=== PATIENT | male | born 1940 | race Caucasian/White ===

== ENCOUNTER 2016-10-10 20:22 | Inpatient (IN) ==
[2016-10-10] MEDS ORDERED: 0.9 % Sodium Chloride 1,000 ML IVC ONE (21:02)
[2016-10-10 21:17] LABS: Bilirubin,Urine Negative (Negative); Blood,Urine Trace (Negative); Clarity,Urine Clear (Clear); Color,Urine Yellow (Yellow); Glucose,Urine (UA) Normal (Normal); Ketones,Urine Negative (Negative); Leukocyte Esterase,Urine Negative (Negative); Nitrite,Urine Negative (Negative); Protein,Urine 30 mg/dL (Neg-Trace); Specific Gravity,Urine 1.019 (1.010-1.025); Urobilinogen,Urine Normal (Normal)
[2016-10-10 21:18] LABS: Bacteria,Urine None Seen per hpf (None-Few); Hyaline Casts,Urine None Seen per lpf (None-Few); RBC,Urine 0-3 per hpf (0-3); Squamous Epithelial Cell,Urine Few per lpf (None-Few); WBC,Urine 0-3 per hpf (0-3)
[2016-10-10] MEDS ORDERED: Acetaminophen 325 MG TABLET PO ONE (21:19)
--- NOTE | 2016-10-10 21:24 | Emergency Department Note ---
Disposition Clinical Impression: Generalized weakness, JUAN (acute kidney injury), Hypokalemia Fever Qualifiers: Fever type: unspecified Qualified Code(s): R50.9 - Fever, unspecified Disposition: Admitted As Inpatient Condition: Fair [facility]Primary Care Provider[facility] - Forms: ED Satisfaction Letter Time of Disposition: 22:38 General Adult HPI - General Chief complaint: ED Altered Mental Status Stated complaint: possible heat exhaustion/weakness/confusion Source: patient, EMS Limitations: no limitations Nursing Notes Reviewed: Yes Vital Signs Reviewed: Yes - History of Present Illness HPI Narrative: Patient is a 76-year-old male with a history of A. fib and a heart murmur that is had since childhood. Patient presents with chief complaint of feeling very hot. Patient states his apartment felt very hot when he entered it this afternoon around noon but states she is unable to turn the heat down secondary to not having the strength to lift his arms to do so. Patient was brought in by EMS. [facility]. Patient is on warfarin. Pain Scale: 0 - Related Data Allergies Allergy/AdvReac Type Severity Reaction Status Date / Time No Known Allergies Allergy Unverified 10/10/16 20:35 All systems ED: reviewed and negative except as stated. Constitutional: Reports: fever Eyes: Denies: vision change Cardiovascular: Denies: chest pain, palpitations, syncope Respiratory: Reports: dyspnea. Denies: cough, wheezes Gastrointestinal: Denies: abdominal pain, nausea, vomiting Genitourinary: Denies: urgency, dysuria Musculoskeletal: Denies: back pain, neck pain Integumentary: Denies: rash Past Medical History - Past Medical History Attestation: Yes The following information was validated with the patient. Source: patient Medical history: Reports: arthritis, atrial fibrillation, diabetes, hyperlipidemia, hypertension Psychiatric history: Reports: no psych history - Social History Smoking Status: Never smoker Smokeless Tobacco Status: No Alcohol use: Reports: none Drug use: Reports: none Physical Exam - General Limitations: no limitations General appearance: alert - Head Head exam: atraumatic, normocephalic, normal inspection - Eye Eye exam: Present: normal appearance, PERRL, EOMI. Absent: scleral icterus - ENT ENT exam: normal exam, normal oropharynx, mucous membranes dry - Neck Neck exam: Present: normal inspection, full ROM, trachea midline. Absent: tenderness, lymphadenopathy - Chest Chest inspection: Present: normal inspection, symmetric chest wall rise. Absent : tenderness - Respiratory Respiratory exam: Present: normal lung sounds bilaterally, respiratory distress. Absent: wheezes - Cardiovascular Cardiovascular exam: Present: normal rhythm, tachycardia, systolic murmur (2/6) - Abdominal Exam Abdominal exam: Present: soft, Non-Tender - Rectal Exam Rectal exam: Present: deferred - Extremities Exam Extremities exam: Present: normal inspection, full ROM, normal capillary refill. Absent: tenderness, pedal edema - Expanded Lower Extremity Exam Hip/Pelvis exam: Present: normal inspection, full ROM - Back Exam Back exam: Present: normal inspection. Absent: CVA tenderness (R), CVA tenderness (L) - Neurological Exam Neurological exam: Present: alert, oriented X3, CN II-XII intact - Psychiatric Psychiatric exam: Present: normal affect, normal mood - Skin Skin exam: Present: warm, dry, intact, normal color. Absent: rash Course - Reevaluation(s) Reevaluation #1: Patient's a 76-year-old male with history of hypertension and lipidemia and diabetes and A. fib. He presents with fever 101.4, generalized weakness, increased thirst, and possible heat exhaustion secondary to very hot apartment area, patient denies any cough, chest pain, shortness of breath, abdominal pain , dysuria, back pain, congestion. Assessment: Generalized weakness/altered mental status secondary to heat Exhaustion, fever secondary to a possible acute viral etiology, ACS/FL, stroke, flu Plan: Cardiac workup, LFTs, PT/INR, urinalysis, 650 mg Tylenol, 324 mg aspirin, 1 L IV normal saline, Flu and reevaluate for disposition Time: 21:25 Reevaluation #2: Patient doing well. Alert and oriented 3 with a GCS of 15. Patient's potassium 2.7 start him on oral potassium chloride 40 meq by mouth. Patient is BUN 32 with a creatinine of 1.49. No previous for comparison. Patient does not report any kidney disease. This may be early AKA eye. Patient started on IV rehydration therapy and also saline [address] and chest x-ray results Patient is therapeutic on warfarin and INR 2.3, patient's troponin is negative at 0.01, and urinalysis did not show signs of UTI EKG shows ST depression in the 3,[address] head shows no acute intracranial abnormalities, chest x-ray showed no acute cardiopulmonary abnormalities. Testing patient for flu Plan is to admit patient for generalized weakness possibly secondary to heat exhaustion and fever, with hypokalemia and JUAN. Time: 21:53 - Consultations Consultation #1: Dr. Escalante accepted for admission Time: 22:37 Vital Signs Temperature 101.4 F H 10/10/16 20:25 Pulse Rate 99 10/10/16 20:25 Respiratory Rate 20 10/10/16 20:25 Blood Pressure 146/77 10/10/16 20:25 O2 Sat by Pulse Oximetry 94 L 10/10/16 20:25 Temperature 98.8 F 10/10/16 22:07 Pulse Rate 97 10/10/16 21:50 Respiratory Rate 20 10/10/16 21:50 Blood Pressure 134/56 10/10/16 21:50 O2 Sat by Pulse Oximetry 95 10/10/16 21:50 Oxygen Delivery Oxygen Delivery Room Air Medical Decision Making - Medical Records Medical records reviewed: Yes I reviewed the patient's medical records. - Lab Data Lab results reviewed: Yes I reviewed the patient's lab results. Lab results narrative: Short CBC 10/10/16 Range/Units 21:22 WBC 9.3 (4.3-11.1) K/mcL Hgb 11.9 L (12.9-16.9) g/dL Hct 34.3 L (37.5-50.1) % Plt Count 173 (140-400) K/mcL Neutrophils # 8.2 (1.6-8.9) K/mcL BMP 10/10/16 Range/Units 21:21 Sodium 139 (136-145) mEq/L Potassium 2.7 L (3.5-4.5) mEq/L Chloride 106 (98-109) mEq/L Carbon Dioxide 20 (19-29) mEq/L BUN 32 H (8-26) mg/dL Creatinine 1.49 H (0.72-1.25) mg/dL Glucose 175 H (70-99) mg/dL Calcium 9.1 (8.6-10.8) mg/dL Cardiac Enzymes 10/10/16 Range/Units 21:21 Troponin I 0.01 (0-0.03) ng/mL Liver Function 10/10/16 Range/Units 21:21 Total Bilirubin 0.5 (0.2-1.2) mg/dL Direct Bilirubin 0.2 (0.0-0.5) mg/dL AST 15 (5-34) Units/L ALT 18 (0-55) Units/L Alkaline Phosphatase 51 (38-126) Units/L Albumin 3.2 L (3.5-5.0) g/dL Urine 10/10/16 Range/Units 21:00 Urine Color Yellow (Yellow) Urine Clarity Clear (Clear) Urine pH 6.0 (5.0-8.0) pH Units Ur Specific [place] 1.019 (1.010-1.025) Urine Protein 30 H (Neg-Trace) mg/dL Urine Glucose (UA) Normal (Normal) mg/dL Result diagrams: 10/10/16 21:22 10/10/16 21:21 Lab Results 10/10/16 10/10/16 10/10/16 Range/Units 20:31 21:00 21:21 WBC (4.3-11.1) K/mcL RBC (4.19-5.50) M/mcL Hgb (12.9-16.9) g/dL Hct (37.5-50.1) % MCV (83.0-100.0) fL MCH (28.0-33.3) pg MCHC (31.6-35.5) g/dL RDW (11.5-14.5) % Plt Count (140-400) K/mcL MPV (9.4-12.4) fL Immature Gran % (0-4) % Seg Neutrophils % % Lymphocytes % % Monocytes % % Eosinophils % % Basophils % % Neutrophils # (1.6-8.9) K/mcL Lymphocytes # (0.6-4.6) K/mcL Monocytes # (0.0-1.3) K/mcL Eosinophils # (0.0-0.6) K/mcL Basophils # (0.0-0.2) K/mcL Immature Plt Fraction (1.1-6.1) % PT 25.3 H (9.4-12.1) Seconds INR 2.3 APTT 33.0 (26.0-36.0) Seconds Sodium (136-145) mEq/L Potassium (3.5-4.5) mEq/L Chloride (98-109) mEq/L Carbon Dioxide (19-29) mEq/L BUN (8-26) mg/dL Creatinine (0.72-1.25) mg/dL Est GFR ( Amer) (> 60) Est GFR (Non-Af Amer) (> 60) BUN/Creatinine Ratio (6-26) Glucose (70-99) mg/dL POC Glucose 197 H (58-89) Calculated Osmolality (280-300) Calcium (8.6-10.8) mg/dL Total Bilirubin (0.2-1.2) mg/dL Direct Bilirubin (0.0-0.5) mg/dL Indirect Bilirubin (0.0-1.2) mg/dL AST (5-34) Units/L ALT (0-55) Units/L Alkaline Phosphatase (38-126) Units/L Troponin I (0-0.03) ng/mL Serum Total Protein (6.0-8.3) g/dL Albumin (3.5-5.0) g/dL Globulin (2.4-3.5) g/dL Albumin/Globulin Ratio (1.1-2.2) Ur Specimen Adequacy See below A Urine Color Yellow (Yellow) Urine Clarity Clear (Clear) Urine pH 6.0 (5.0-8.0) pH Units Ur Specific [place] 1.019 (1.010-1.025) Urine Protein 30 H (Neg-Trace) mg/dL Urine Glucose (UA) Normal (Normal) mg/dL Urine Ketones Negative (Negative) mg/dL Urine Blood Trace H (Negative) Urine Nitrite Negative (Negative) Urine Bilirubin Negative (Negative) Urine Urobilinogen Normal (Normal) mg/dL Ur Leukocyte Esterase Negative (Negative) Urine Microscopic RBC 0-3 (0-3) per hpf Urine Microscopic WBC 0-3 (0-3) per hpf Ur Squamous Epith Cells Few (None-Few) per lpf Urine Bacteria None Seen (None-Few) per hpf Hyaline Casts None Seen (None-Few) per lpf Ur Culture Indicated? NO (NO) 10/10/16 10/10/16 10/10/16 Range/Units 21:21 21:21 21:22 WBC 9.3 (4.3-11.1) K/mcL RBC 3.99 L (4.19-5.50) M/mcL Hgb 11.9 L (12.9-16.9) g/dL Hct 34.3 L (37.5-50.1) % MCV 86.0 (83.0-100.0) fL MCH 29.8 (28.0-33.3) pg MCHC 34.7 (31.6-35.5) g/dL RDW 13.3 (11.5-14.5) % Plt Count 173 (140-400) K/mcL MPV 10.3 (9.4-12.4) fL Immature Gran % 0.6 (0-4) % Seg Neutrophils % 88.0 % Lymphocytes % 4.1 % Monocytes % 6.8 % Eosinophils % 0.2 % Basophils % 0.3 % Neutrophils # 8.2 (1.6-8.9) K/mcL Lymphocytes # 0.4 L (0.6-4.6) K/mcL Monocytes # 0.6 (0.0-1.3) K/mcL Eosinophils # 0.0 (0.0-0.6) K/mcL Basophils # 0.0 (0.0-0.2) K/mcL Immature Plt Fraction 2.8 (1.1-6.1) % PT (9.4-12.1) Seconds INR APTT (26.0-36.0) Seconds Sodium 139 (136-145) mEq/L Potassium 2.7 L (3.5-4.5) mEq/L Chloride 106 (98-109) mEq/L Carbon Dioxide 20 (19-29) mEq/L BUN 32 H (8-26) mg/dL Creatinine 1.49 H (0.72-1.25) mg/dL Est GFR ( Amer) 56 L (> 60) Est GFR (Non-Af Amer) 46 L (> 60) BUN/Creatinine Ratio 21 (6-26) Glucose 175 H (70-99) mg/dL POC Glucose (58-89) Calculated Osmolality 299 (280-300) Calcium 9.1 (8.6-10.8) mg/dL Total Bilirubin 0.5 (0.2-1.2) mg/dL Direct Bilirubin 0.2 (0.0-0.5) mg/dL Indirect Bilirubin 0.3 (0.0-1.2) mg/dL AST 15 (5-34) Units/L ALT 18 (0-55) Units/L Alkaline Phosphatase 51 (38-126) Units/L Troponin I 0.01 (0-0.03) ng/mL Serum Total Protein 6.5 (6.0-8.3) g/dL Albumin 3.2 L (3.5-5.0) g/dL Globulin 3.3 (2.4-3.5) g/dL Albumin/Globulin Ratio 1.0 L (1.1-2.2) Ur Specimen Adequacy Urine Color (Yellow) Urine Clarity (Clear) Urine pH (5.0-8.0) pH Units Ur Specific [place] (1.010-1.025) Urine Protein (Neg-Trace) mg/dL Urine Glucose (UA) (Normal) mg/dL Urine Ketones (Negative) mg/dL Urine Blood (Negative) Urine Nitrite (Negative) Urine Bilirubin (Negative) Urine Urobilinogen (Normal) mg/dL Ur Leukocyte Esterase (Negative) Urine Microscopic RBC (0-3) per hpf Urine Microscopic WBC (0-3) per hpf Ur Squamous Epith Cells (None-Few) per lpf Urine Bacteria (None-Few) per hpf Hyaline Casts (None-Few) per lpf Ur Culture Indicated? (NO) - Radiology Data Radiology results reviewed: Yes I reviewed the patient's radiology results. Chest X-Ray 10/10/16 21:02 IMPRESSION: No acute process. D/ / Shayne Cisneros MD / Shayne Cisneros MD Interpreting Provider: Shayne Cisneros MD Head CT 10/10/16 21:02 IMPRESSION: No acute intracranial abnormality. D/ / Shayne Cisneros MD / Shayne Cisneros MD Interpreting Provider: Shayne Cisneros MD - EKG Data EKG #1 EKG attestation: Yes I reviewed and interpreted this EKG. EKG results narrative: EKG dated 10/10/2016 at 2032 hrs. shows a sinus rhythm at a rate of 98 bpm. EKG shows some nonspecific ST and T-wave abnormalities in leads V3 V4 for ST depression. T waves are still upright. This is new when compared to previous EKG taken October 13 2006 which shows sinus bradycardia at a rate of 57 bpm with no acute ST elevations depressions in any leads no QRS widening or QT prolongation.
[2016-10-10 21:28] LABS: Basophils % 0.3 %; Eosinophils % 0.2 %; Hematocrit 34.3 % (37.5-50.1); Hemoglobin 11.9 g/dL (12.9-16.9); Immature Granulocytes % 0.6 % (0-4); Immature Platelets 2.8 % (1.1-6.1); Lymphocytes # 0.4 K/mcL (0.6-4.6); Lymphocytes % 4.1 %; Mean Corpuscular HGB Conc 34.7 g/dL (31.6-35.5); Mean Corpuscular Hemoglobin 29.8 pg (28.0-33.3); Mean Platelet Volume 10.3 fL (9.4-12.4); Monocytes # 0.6 K/mcL (0.0-1.3); Monocytes % 6.8 %; Neutrophils # 8.2 K/mcL (1.6-8.9); Platelet Count 173 K/mcL (140-400); Red Blood Count 3.99 M/mcL (4.19-5.50); Red Cell Distribution Width 13.3 % (11.5-14.5)
--- NOTE | 2016-10-10 21:30 | Emergency Department Note ---
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 76 yo male presents with AMS and LH. Hx of Afib. [place] weak and fatigued after christian today. Had difficulty turning down temp in house which is unusual for him. +fever of 101.4 in ED. No cough, n/v/d, chest pain, abd pain, rash, dysuria, back pain, CVA tenderness. Abd nontender to palpation. Lungs CTAB. ECG showed NSR rate of [address] depression of V3,4,5. First trop negative. CT head negative for ICH. Pt will be admitted for futher care and evaluation.
[2016-10-10 21:32] LABS: INR 2.3; Prothrombin Time 25.3 Seconds (9.4-12.1)
[2016-10-10 21:41] LABS: Albumin 3.2 g/dL (3.5-5.0); Bilirubin,Direct 0.2 mg/dL (0.0-0.5); Bilirubin,Indirect 0.3 mg/dL (0.0-1.2); Bilirubin,Total 0.5 mg/dL (0.2-1.2); Calcium 9.1 mg/dL (8.6-10.8); Globulin 3.3 g/dL (2.4-3.5); Potassium 2.7 mEq/L (3.5-4.5); Total Protein 6.5 g/dL (6.0-8.3)
[2016-10-10] MEDS: Aspirin 81 MG TAB.CHEW PO ONE (21:47)
[2016-10-10 22:41] LABS: Magnesium 0.9 mg/dL (1.6-2.6)
--- NOTE | 2016-10-10 23:36 | Internal Med History&Physical ---
Date of Encounter: 10/10/16 Time of Encounter: 23:36 Assessment and Plan (1) Hypokalemia Current visit: Yes Status: Acute Could be responsible for generalized weakness. Cause is not known at this time. Treat with oral potassium supplements. (2) Hypomagnesemia Current visit: Yes Status: Acute Severe hypomagnesemia. Replenish Magnesium intravenously. (3) JUAN (acute kidney injury) Current visit: Yes Status: Acute Possibly pre-renal due to volume depletion/poor intake/heat exhaustion. Encourage oral intake and IV fluids. Monitor renal function (4) Fever Current visit: Yes Status: Acute Pt had temp of 101.4F in the ER. Possibly due to hot room temperature at home. However, need to exclude infection as possible cause. UA and CXR are negative. Will obtain blood cultures. Monitor temp Qualifiers: Fever type: unspecified Qualified Code(s): R50.9 - Fever, unspecified (5) Generalized weakness Current visit: Yes Status: Acute Possibly due heat exhaustion versus volume depletions versus hypokalemia. Pt is cooled now. On IV fluids and potassium replenishment. Physical therapy consult. (6) Diabetes mellitus Current visit: Yes Status: Chronic Sliding scale insulin Qualifiers: Diabetes mellitus type: type 2 Diabetes mellitus complication status: with unspecified complications Diabetes mellitus continuous churn buttermaker insulin use: without continuous churn buttermaker use Qualified Code(s): E11.8 - Type 2 diabetes mellitus with unspecified complications Internal Medicine - H&P: HPI Chief complaint: Generalized weakness Admitted From: Emergency Dept Plans for Post Hospital Care: Home History of present illness: Mr. Palacios is a 76 year old male With past medical history significant for diabetes mellitus, hypertension, atrial fibrillation - on anticoagulation with warfarin, h/o heart murmur. He apparently was feeling well earlier in the day and went to [employer]. He returned home and was sitting in a chair. He was trying to get up at about 6 PM, to go to the [employer] but could not get up. He was concerned and called the EMS. Per the notes from the EMS, patient was sitting in the living room. Heating control was broken and temperature was hot. Pt skin was hot to touch. Temperature 101.9F. Evaporative cooling was performed by the EMS and was brought to emergency department. In the emergency department, patient had temperature 101.4 degrees. He was given intravenous normal saline bolus and potassium was given orally, for hypokalemia. He is admitted to the hospitalist service, for further management. Pt reported generalized weakness this afternoon but feels he is improving now. He denies focal weakness of extremities. He denies headache, blurry vision, nausea, vomiting, chest pain, shortness of breath, cough, expectation, fever, chills, abdominal pain, dysuria, hematuria. Has history of constipation. Past Med Surg Social Fam HX - Past Medical History Medical history: arthritis, atrial fibrillation, diabetes, hyperlipidemia, hypertension Psychiatric history: no psych history - Social History Smoking Status: Never smoker Smokeless Tobacco Status: No Alcohol use: none Drug use: none - Family History Mother Hx Family Cardiac Disorders: Yes (enlarged heart) Internal Medicine - H&P: Meds Gabapentin [Neurontin] 600 mg PO TID 10/10/16 [History] GlipiZIDE [Glipizide] 10 mg PO BID 10/10/16 [History] Metformin [Glucophage] 500 mg PO BIDWM 10/10/16 [History] Warfarin [Coumadin] 2.5 mg PO 1800 10/10/16 [History] Allergies No Known Allergies Allergy (Unverified 10/10/16 20:35) All Systems PM: A 10-system review of systems was performed and is negative for pertinent findings except as documented above in the HPI. - Constitutional Vitals: Temp Pulse Resp BP Pulse Ox 98.1 F 86 17 116/57 95 10/10/16 23:27 10/10/16 23:27 10/10/16 23:27 10/10/16 23:27 10/10/16 23:27 Exam: General: Not in acute distress at the time of my evaluation HEENT: Oral mucosa is dry. No conjunctival palor or scleral icterus Neck: No obvious neck swellings Lungs: Clear to auscultation Cardiac: Regular rate and rhythm. Loud systolic murmur present (aortic sclerosis versus aortic stenosis) Abdomen: Soft, non tender. Bowel sounds present Genitourinary: No herrera catheter Neurological: Alert and oriented. No gross localizing deficits. No gross cranial nerve deficits Psych: Not aggressive or agitated Extremities: no significant leg edema Skin: No generalized rash Internal Med - H&P Results - Labs CBC & Chem 7: 10/10/16 21:22 10/10/16 21:21 - EKG Data -: EKG Interpreted by Myself EKG shows normal: sinus rhythm - EKG Data EKG comments: ST depression in leads I, II, AVL, V3-V6 10/11/16 00:38 - Impressions ITS Impressions Chest X-Ray 10/10/16 21:02 IMPRESSION: No acute process. D/ / Shayne Cisneros MD / Shayne Cisneros MD Interpreting Provider: Shayne Cisneros MD Head CT 10/10/16 21:02 IMPRESSION: No acute intracranial abnormality. D/ / Shayne Cisneros MD / Shayne Cisneros MD Interpreting Provider: Shayne Cisneros MD
[2016-10-10] MEDS ORDERED: Naloxone 0.4 MG/ML INJ IVP PRN (23:59)
[2016-10-11] MEDS ORDERED: D5% in Water 1,000 ML IVC PRN (00:07)
[2016-10-11] MEDS ORDERED: Dextrose Gel 15 GM PO PRN ×2 (00:07)
[2016-10-11] MEDS ORDERED: *HR* Dextrose 50 % in Water (Syg) 50 ML SYRINGE IVP PRN (00:07)
[2016-10-11] MEDS ORDERED: 0.9 % Sodium Chloride 1,000 ML IVC SCH (00:15)
[2016-10-11 00:40] LABS: Basophils % 0.3 %; Hematocrit 32.5 % (37.5-50.1); Hemoglobin 11.1 g/dL (12.9-16.9); Immature Granulocytes % 0.5 % (0-4); Immature Platelets 2.7 % (1.1-6.1); Lymphocytes # 0.6 K/mcL (0.6-4.6); Lymphocytes % 4.4 %; Mean Corpuscular HGB Conc 34.2 g/dL (31.6-35.5); Mean Corpuscular Hemoglobin 29.4 pg (28.0-33.3); Mean Corpuscular Volume 86.2 fL (83.0-100.0); Mean Platelet Volume 10.3 fL (9.4-12.4); Monocytes % 7.8 %; Neutrophils # 11.4 K/mcL (1.6-8.9); Platelet Count 178 K/mcL (140-400); Red Blood Count 3.77 M/mcL (4.19-5.50); Red Cell Distribution Width 13.4 % (11.5-14.5)
[2016-10-11] MEDS: Magnesium Sulfate 2 GM in D5% in Water 100 ML IVPB SCH ×2 (00:40→03:42)
[2016-10-11 00:45] LABS: INR 2.5; Prothrombin Time 27.2 Seconds (9.4-12.1)
[2016-10-11 00:57] LABS: BUN/Creatinine Ratio 22 (6-26); Blood Urea Nitrogen 29 mg/dL (8-26); Calcium 8.7 mg/dL (8.6-10.8); Carbon Dioxide 22 mEq/L (19-29); Chloride 107 mEq/L (98-109); Glucose 136 mg/dL (70-99); Magnesium 1.1 mg/dL (1.6-2.6); Osmolality,Calculated 296 (280-300); Potassium 2.7 mEq/L (3.5-4.5); Sodium 139 mEq/L (136-145); eGFR For African Americans > 60 (> 60); eGFR For Non-African Americans 53 (> 60)
--- NOTE | 2016-10-11 07:06 | Electrocardiograph Report ---
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
[2016-10-11] MEDS: Insulin LISPRO 300 UNITS/3 ML VIAL SQ SCH ×2 (07:57→11:42)
[2016-10-11] MEDS ORDERED: Gabapentin 300 MG CAPSULE PO SCH (09:00)
[2016-10-11 10:05] LABS: BUN/Creatinine Ratio 20 (6-26); Blood Urea Nitrogen 24 mg/dL (8-26); Calcium 8.6 mg/dL (8.6-10.8); Carbon Dioxide 23 mEq/L (19-29); Chloride 106 mEq/L (98-109); Glucose 203 mg/dL (70-99); Magnesium 1.8 mg/dL (1.6-2.6); Osmolality,Calculated 296 (280-300); Potassium 3.4 mEq/L (3.5-4.5); Sodium 138 mEq/L (136-145); eGFR For African Americans > 60 (> 60); eGFR For Non-African Americans 59 (> 60)
[2016-10-11 11:25] VITALS: BP 135/79
[2016-10-11] MEDS ORDERED: Acetaminophen 325 MG TABLET PO PRN (12:20)
--- NOTE | 2016-10-11 12:52 | Discharge Summary ---
Date of Encounter: 10/11/16 Time of Encounter: 10:30 - Discharge Diagnosis (1) Fever Priority: Primary Status: Resolved Qualifiers: Fever type: unspecified Qualified Code(s): R50.9 - Fever, unspecified (2) Generalized weakness Priority: Primary Status: Resolved Comments: No focal neurological weakness is present on examination. Patient with upright , steady gait. No needs per physical therapy. (3) Afib Priority: Secondary Status: Chronic Comments: Rate controlled, therapeutic on Coumadin (4) Adequate anticoagulation on anticoagulant therapy Priority: Secondary Status: Chronic Comments: INR therapeutic during his admission, follow-up outpatient (5) JUAN (acute kidney injury) Priority: Primary Status: Resolved (6) Hypokalemia Priority: Primary Status: Acute Comments: Nearly resolved, 3.4 time of discharge, follow-up outpatient (7) Hypomagnesemia Priority: Primary Status: Resolved (8) Diabetes mellitus Priority: Secondary Status: Chronic Comments: No recent A1c, appears relatively well-controlled, follow-up outpatient Qualifiers: Diabetes mellitus type: type 2 Diabetes mellitus complication status: with unspecified complications 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 custodial use Qualified Code(s): E11.8 - Type 2 diabetes mellitus with unspecified complications - Discharge Medications Home Medications: GlipiZIDE [Glipizide] 10 mg PO BID 10/10/16 [History] Metformin [Glucophage] 850 mg PO TIDWM 10/10/16 [History] Warfarin [Coumadin] 2.5 mg PO 1800 10/10/16 [History] Amlodipine Besylate 10 mg PO DAILY 10/11/16 [History] Atorvastatin Calcium [Lipitor] 60 mg PO DAILY 10/11/16 [History] Cholecalciferol (D-3) [Vitamin D] 1,000 unit PO DAILY 10/11/16 [History] Cyanocobalamin (B-12) [Vitamin B12] 1,000 mcg PO DAILY 10/11/16 [History] Ferrous Sulfate [Iron] 325 mg PO BID 10/11/16 [History] Gabapentin [Neurontin] 900 mg PO TID 10/11/16 [History] Hydrochlorothiazide 25 mg PO DAILY 10/11/16 [History] Isosorbide MONOnitrate (24 HR) [Imdur] 30 mg PO DAILY 10/11/16 [History] Levothyroxine [Synthroid] 50 mcg PO 0630 10/11/16 [History] Lisinopril [Zestril] 40 mg PO BID 10/11/16 [History] Magnesium Oxide [Magnesium] 400 mg PO DAILY 10/11/16 [History] Metoprolol Succinate 25 mg PO DAILY 10/11/16 [History] Nitroglycerin [Nitrostat] 0.4 mg SL Q5M PRN 10/11/16 [History] Omeprazole [PriLOSEC] 20 mg PO DAILY 10/11/16 [History] Potassium Chloride [K-Tab ER] 10 meq PO DAILY 10/11/16 [History] Sotalol [Betapace] 40 mg PO BID 10/11/16 [History] Terazosin HCl 5 mg PO BID 10/11/16 [History] Warfarin [Coumadin] 5 mg PO QMWF 10/11/16 [History] Allergies/Adverse Reactions: Allergies No Known Allergies Allergy (Verified 10/11/16 10:43) Procedures/tests Complete & Pending: Procedures Performed prior 72 hours Category Date Time Status EKG [ECG 12 lead ECG] [ECG] Routine Y 10/11/16 00:39 Completed Date of admission: 10/10/16 23:55 [facility] care physician: [facility] Consults: 10/11/16 00:05 Consult to Physical Therapy [CONS] Routine Comment: Evaluate, develop and implement POC Discharging clinician: Jes Forrester Anticipated date of discharge: 10/11/16 - Patient Status Disposition: Home, Self-Care Condition: Good Functional capacity at discharge: independent ambulation Overall status at discharge: patient is back to baseline - Discharge Instructions Follow Up With: [facility] [Primary Care Provider] - Additional Instructions: Follow-up with primary care provider within 1-2 weeks - Diet and Activity Activity: increase activity as tolerated Diet: diabetic diet, low fat, low cholesterol Hospital course: Mr. Palacios is a 76 year old male with past medical history atrial fibrillation on Coumadin, diabetes, hypertension. Patient presented to the emergency department chief complaint generalized weakness and fever. Patient stating on the day of presentation that he felt normal, went to islam, and then came home and per EMS report, he was sitting and a room that was very hot and he was initially febrile at 101.9. Workup in the emergency department unremarkable except for mildly elevated temperature. Chest x-ray negative. Head CT negative. Patient was admitted to the hospitalist service for further evaluation and management. No focal neurological weakness is present on examination. Patient denied pain. Patient was alert and oriented 3 throughout this admission. He had mild acute kidney injury, hypokalemia, and hypomagnesemia that all resolved overnight with IV fluids and potassium and magnesium supplementation. Likely cause of the patient's weakness and dehydration that resolved. He tolerated a regular diet prior to discharge. He was seen and evaluated by physical therapy who surmised she had no needs. He did not have any signs of an acute infection. Flu swab negative. Urinalysis negative. He was discharged home in stable condition with close outpatient follow-up recommended. He was encouraged to stay hydrated. ITS Impressions Chest X-Ray 10/10/16 21:02 IMPRESSION: No acute process. D/ / Shayne Cisneros MD / Shayne Cisneros MD Interpreting Provider: Shayne Cisneros MD Head CT 10/10/16 21:02 IMPRESSION: No acute intracranial abnormality. D/ / Shayne Cisneros MD / Shayne Cisneros MD Interpreting Provider: Shayne Cisneros MD - Time Spent with Patient Total time spent providing and/or coordinating discharge services: - Constitutional Vitals: Temp Pulse Resp BP Pulse Ox 98.0 F 67 16 135/79 97 10/11/16 11:24 10/11/16 11:24 10/11/16 11:24 10/11/16 11:24 10/11/16 11:24 General appearance: Present: A&O X 3, pleasant, no acute distress, answers questions appropriately - Head Head exam: Present: atraumatic, normocephalic - Eye Eye exam: Present: PERRL, conjuntiva pink, sclera anicteric Pupils: Present: PERRL - Neck Neck exam general surgery: Present: supple, trachea midline. Absent: lymphadenopathy - Respiratory Respiratory exam: Present: CTAB. Absent: accessory muscle use, rales, respiratory distress, rhonchi, wheezes - Cardiovascular Cardiovascular exam: Present: irregular rhythm, RRR, +S1, +S2. Absent: diastolic murmur, gallop, rubs, systolic murmur - GI/Abdominal GI/Abdominal exam: Present: normal bowel sounds, soft, no peritoneal signs. Absent: distended, tenderness - Extremities Exam Extremities exam: Present: warm, radial pulses palpable and symetrical. Absent : calf tenderness, cyanotic, pedal edema - Neurological Exam Neurological exam: Present: alert, CN II-XII intact, normal gait, oriented X3, no focal deficits, strengths equal and symetr throughout. Absent: pronater drift, facial droop, speech deficit - Skin Skin exam: Present: dry, intact, normal color, warm
[2016-10-11] MEDS ORDERED: *HR* Warfarin 2.5 MG TABLET PO SCH (18:00)
[2016-10-11] MEDS ORDERED: Warfarin perPT PO PRN (18:00)
[2016-10-11] MEDS ORDERED: *HR* Warfarin 5 MG TABLET PO ONE (18:00)
[2016-10-11] MEDS ORDERED: Insulin LISPRO 300 UNITS/3 ML VIAL SQ SCH (21:00)
--- NOTE | 2016-10-12 08:20 | Electrocardiograph Report ---
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
== END 2016-10-11 13:50 | disposition home or self-care (01) | DRG 684 ==
LOC: 3BNU 20:22 → EMEROO 20:22 → 3BNU 23:12
PROVIDERS: ADMIT Internal Medicine; ATTEND Nurse Practitioner Family

== ENCOUNTER 2020-09-13 15:11 | Inpatient (IN) ==
[2020-09-13] MEDS ORDERED: Isovue-370 500 ML BOTTLE IVP ONE (15:28)
[2020-09-13 15:58] LABS: Basophils # 0.1 K/mcL (0.0-0.2); Basophils % 0.7 %; Eosinophils # 0.3 K/mcL (0.0-0.6); Eosinophils % 3.6 %; Hematocrit 27.6 % (37.5-50.1); Hemoglobin 9.3 g/dL (12.9-16.9); Immature Granulocytes % 0.6 % (0-4); Lymphocytes # 0.4 K/mcL (0.6-4.6); Lymphocytes % 6.4 %; Mean Corpuscular HGB Conc 33.7 g/dL (31.6-35.5); Mean Corpuscular Hemoglobin 30.3 pg (28.0-33.3); Mean Corpuscular Volume 89.9 fL (83.0-100.0); Mean Platelet Volume 9.5 fL (9.4-12.4); Monocytes # 0.6 K/mcL (0.0-1.3); Neutrophils # 5.5 K/mcL (1.6-8.9); Platelet Count 236 K/mcL (140-400); Red Blood Count 3.07 M/mcL (4.19-5.50); Red Cell Distribution Width 13.1 % (11.5-14.5); Segmented Neutrophils % 79.7 %; White Blood Count 6.9 K/mcL (4.3-11.1)
[2020-09-13 16:14] LABS: INR 1.9; Prothrombin Time 21.9 Seconds (9.4-12.1)
[2020-09-13 16:17] LABS: Activated Partial Thrombo Time 32.9 Seconds (26.0-36.0)
[2020-09-13 16:18] LABS: Calcium 8.5 mg/dL (8.6-10.3); Potassium 3.8 mEq/L (3.5-5.1)
[2020-09-13] MEDS ORDERED: Naloxone 0.4 MG/ML INJ IVP PRN (19:42)
[2020-09-13] MEDS ORDERED: *HR* Dextrose 50 % in Water (Vial) 50 ML VIAL IVP PRN (19:42)
[2020-09-13] MEDS ORDERED: D5% in Water 1,000 ML IVC PRN (19:42)
[2020-09-13] MEDS ORDERED: Dextrose Gel 15 GM/37.5 ML TUBE PO PRN ×2 (19:42)
[2020-09-13 19:50] LABS: Protein/Creatinine Ratio,Urine 0.32 mg/mg (0.00-0.20); Sodium, Urine 23.1 mEq/L
[2020-09-13 19:55] LABS: Bacteria,Urine Few per hpf (None-Few); Bilirubin,Urine Negative (Negative); Blood,Urine Moderate (Negative); Clarity,Urine Clear (Clear); Color,Urine Light-Yellow (Yellow); Glucose,Urine (UA) Normal (Normal); Ketones,Urine Negative (Negative); Leukocyte Esterase,Urine Negative (Negative); Mucus,Urine Few per lpf (None-Few); Nitrite,Urine Negative (Negative); Protein,Urine Negative (Neg-Trace); Specific Gravity,Urine 1.011 (1.010-1.025); Urobilinogen,Urine Normal (Normal); WBC,Urine 0-3 per hpf (0-3)
[2020-09-13 20:08] LABS: Albumin 3.5 g/dL (3.5-5.7); Bilirubin,Direct 0.1 mg/dL (0.0-0.2); Bilirubin,Indirect 0.3 mg/dL (0.0-1.0); Bilirubin,Total 0.4 mg/dL (0.3-1.0); Globulin 3.4 g/dL (2.4-3.5); Magnesium 1.1 mg/dL (1.6-2.6); Phosphorous 5.5 mg/dL (2.7-4.5); Total Protein 6.9 g/dL (6.4-8.9)
[2020-09-13] MEDS ORDERED: polyethylene glycoL 3350 17 GM POWD.PACK PO ONE (20:50)
[2020-09-13] MEDS ORDERED: 0.9 % Sodium Chloride 1,000 ML IVC SCH (21:15)
[2020-09-13] MEDS ORDERED: Ondansetron ODT 4 MG TAB.RAPDIS SL PRN (21:35)
[2020-09-13] MEDS ORDERED: Acetaminophen 325 MG TABLET PO PRN (21:35)
[2020-09-13] MEDS: Insulin LISPRO 300 UNITS/3 ML VIAL SUBQ SCH (23:00)
[2020-09-13 23:48] LABS: Estimated Average Glucose 128 mg/dl; Hemoglobin A1C 6.1 %
[2020-09-14] MEDS: Sennosides/Docusate Sodium TABLET PO SCH ×3 (01:56→20:08)
[2020-09-14] MEDS ORDERED: *HR* HYDROcodone/Acet 5/325 mg TABLET PO PRN (02:19)
[2020-09-14] MEDS: Apixaban 5 MG TABLET PO SCH ×3 (02:33→20:07)
[2020-09-14 04:49] LABS: Basophils # 0.1 K/mcL (0.0-0.2); Eosinophils # 0.2 K/mcL (0.0-0.6); Eosinophils % 4.4 %; Hematocrit 26.2 % (37.5-50.1); Hemoglobin 8.7 g/dL (12.9-16.9); Immature Granulocytes % 0.6 % (0-4); Lymphocytes # 0.3 K/mcL (0.6-4.6); Mean Corpuscular HGB Conc 33.2 g/dL (31.6-35.5); Mean Corpuscular Hemoglobin 30.9 pg (28.0-33.3); Mean Corpuscular Volume 92.9 fL (83.0-100.0); Mean Platelet Volume 9.8 fL (9.4-12.4); Monocytes # 0.6 K/mcL (0.0-1.3); Monocytes % 10.6 %; Platelet Count 233 K/mcL (140-400); Red Blood Count 2.82 M/mcL (4.19-5.50); Segmented Neutrophils % 77.4 %; White Blood Count 5.2 K/mcL (4.3-11.1)
[2020-09-14 05:00] LABS: INR 1.9; Prothrombin Time 21.4 Seconds (9.4-12.1)
[2020-09-14 05:10] LABS: Calcium 8.6 mg/dL (8.6-10.3); Potassium 3.5 mEq/L (3.5-5.1)
[2020-09-14] MEDS: Insulin LISPRO 300 UNITS/3 ML VIAL SUBQ SCH ×4 (07:19→21:15)
[2020-09-14] MEDS: NIFEdipine XL (24 HR) 30 MG TAB.ER.24 PO SCH (08:46)
[2020-09-14] MEDS: Aspirin Enteric Coated 81 MG Tablet PO SCH (08:46)
[2020-09-14] MEDS: Finasteride 5 MG TABLET PO SCH (08:46)
[2020-09-14] MEDS: Pregabalin 50 MG CAPSULE PO SCH (20:08)
[2020-09-15 03:48] LABS: Hematocrit 24.4 % (37.5-50.1); Hemoglobin 8.3 g/dL (12.9-16.9); Mean Corpuscular Hemoglobin 30.5 pg (28.0-33.3); Mean Corpuscular Volume 89.7 fL (83.0-100.0); Mean Platelet Volume 9.7 fL (9.4-12.4); Platelet Count 266 K/mcL (140-400); Red Blood Count 2.72 M/mcL (4.19-5.50); Red Cell Distribution Width 12.9 % (11.5-14.5); White Blood Count 5.3 K/mcL (4.3-11.1)
[2020-09-15 04:08] LABS: Calcium 8.6 mg/dL (8.6-10.3); Potassium 3.4 mEq/L (3.5-5.1)
[2020-09-15] MEDS: NIFEdipine XL (24 HR) 30 MG TAB.ER.24 PO SCH (08:16)
[2020-09-15] MEDS: Sennosides/Docusate Sodium TABLET PO SCH ×2 (08:16→21:06)
[2020-09-15] MEDS: Finasteride 5 MG TABLET PO SCH (08:16)
[2020-09-15] MEDS: Insulin LISPRO 300 UNITS/3 ML VIAL SUBQ SCH ×4 (08:16→21:09)
[2020-09-15] MEDS: Apixaban 5 MG TABLET PO SCH ×2 (08:17→21:05)
[2020-09-15] MEDS: Aspirin Enteric Coated 81 MG Tablet PO SCH (08:17)
[2020-09-15] MEDS ORDERED: polyethylene glycoL 3350 17 GM POWD.PACK PO STA (08:25)
[2020-09-15] MEDS ORDERED: Bisacodyl 10 MG RECTAL SUPPOSITORY RC STA (08:25)
[2020-09-15] MEDS: Pregabalin 50 MG CAPSULE PO SCH (21:05)
[2020-09-16 06:52] LABS: Hematocrit 30.8 % (37.5-50.1); Mean Corpuscular HGB Conc 33.4 g/dL (31.6-35.5); Mean Corpuscular Hemoglobin 30.3 pg (28.0-33.3); Mean Corpuscular Volume 90.6 fL (83.0-100.0); Mean Platelet Volume 10.2 fL (9.4-12.4); Platelet Count 309 K/mcL (140-400); Red Cell Distribution Width 12.9 % (11.5-14.5); White Blood Count 7.8 K/mcL (4.3-11.1)
[2020-09-16 06:54] LABS: Hemoglobin 10.3 g/dL (12.9-16.9)
[2020-09-16] MEDS: Insulin LISPRO 300 UNITS/3 ML VIAL SUBQ SCH ×3 (08:47→18:00)
[2020-09-16] MEDS: NIFEdipine XL (24 HR) 30 MG TAB.ER.24 PO SCH (08:48)
[2020-09-16] MEDS: Apixaban 5 MG TABLET PO SCH (08:48)
[2020-09-16] MEDS: Finasteride 5 MG TABLET PO SCH (08:49)
[2020-09-16] MEDS: Sennosides/Docusate Sodium TABLET PO SCH (08:49)
[2020-09-16] MEDS: Aspirin Enteric Coated 81 MG Tablet PO SCH (08:49)
[2020-09-16 10:27] LABS: Calcium 9.1 mg/dL (8.6-10.3); Potassium 3.5 mEq/L (3.5-5.1)
[2020-09-16 11:26] VITALS: BP 157/84
== END 2020-09-16 19:15 | disposition critical access hospital (66) | DRG 694 ==
LOC: EMEROOARM 15:11 → 3ANU 15:11 → SUATTDRO 19:07 → 3ANU 21:15
PROVIDERS: ADMIT Internal Medicine; ATTEND Internal Medicine